=== PATIENT | male | born 1975 | race Two or more races ===

== ENCOUNTER 2020-04-18 12:23 | Emergency (ER) | payer MEDICAID, OTHER ==
[~2020-04-18] VITALS: Ht 170.2 cm; Wt 84.8 kg
[~2020-04-18 12:23] MED LIST: ASPI-807 PO; SIMV40TA2 PO
--- NOTE | 2020-04-18 12:23 | NUR ---
PT BIB SELF C/O L HAND LACERATION "GOT CUT WITH THE GLASS" PT IS AAOX4, NOT IN RESPIRATORY DISTRESS, V/S STABLE, KEPT RESTED AND COMFORTABLE. WILL CONTINUE TO MONITOR.
--- NOTE | 2020-04-18 12:30 | NUR ---
SEEN AND EXAMINED BY .
[2020-04-18] MEDS ORDERED: LIDOCAINE 1%-EPI 1:100,000 20 ML VIAL ONE (12:43)
[2020-04-18] MEDS ORDERED: LIDOCAINE 1%-EPI 1:100,000 20 ML VIAL TP ONE (13:00)
--- NOTE | 2020-04-18 13:20 | NUR ---
PAGED DR. CRANE.
--- NOTE | 2020-04-18 13:49 | NUR ---
KEVLEX DRESSING WITH ANTIBIOTIC OINTMENT APPLIED ON THE L HAND BY CONTRACT PROGRAMMER.
--- NOTE | 2020-04-18 14:06 | NUR ---
Patient discharged to home in stable condition. Written and verbal after care instructions given. Patient verbalizes understanding of instruction.
[2020-04-18 14:07] VITALS: BP 134/82
== END 2020-04-18 14:08 | disposition home or self-care (01) ==
LOC: ER 12:25
DX: S56.322A Laceration of extensor or abductor muscles, fascia and tendons of left thumb at forearm level, initial encounter (principal); I10 Essential (primary) hypertension; Z95.5 Presence of coronary angioplasty implant and graft; Z79.82 Long term (current) use of aspirin; Z79.899 Other long term (current) drug therapy; W25.XXXA Contact with sharp glass, initial encounter; Y93.89 Activity, other specified; Y92.89 Other specified places as the place of occurrence of the external cause; Y99.8 Other external cause status
CPT/HCPCS: 29125; 73130; 99283; A6403; J3490